=== PATIENT | female | born 1995 | race Caucasian/White ===

== ENCOUNTER 2018-05-15 21:53 | Observation (INO) | payer BC ==
[~2018-05-15] VITALS: Ht 172.7 cm; Wt 70.3 kg
[2018-05-15] MEDS ORDERED: NS(*) 0.9% 1000 ML BAG 1,000 ML IV ONE (22:02)
--- NOTE | 2018-05-15 22:02 | ER Report ---
History and Physical Time Seen By MD: 21:57 HPI/ROS CHIEF COMPLAINT: Right lower quadrant abdominal pain HISTORY OF PRESENT ILLNESS: 22-year-old female presents with 4 hours of severe right lower quadrant pain. She notes nausea but no vomiting. She's had no fever or chills. She denies dysuria. Menstrual period was one week ago. REVIEW OF SYSTEMS: Respiratory: No cough, no dyspnea. Cardiovascular: No chest pain, no palpitations. Gastrointestinal: As above Musculoskeletal: No back pain. Allergies: Coded Allergies: No Known Drug Allergies (Unverified , 05/15/18) Home Meds Active Scripts Tramadol Hcl (TRAMADOL HCL) 50 Mg Tablet, 50 MG PO Q4H PRN for PAIN, #30 TAB Prov:MACARIO NUNEZ 05/17/18 Reported Medications [ Control] No Conflict Check 05/15/18 Constitutional Vital Sign - Last 24 Hours 05/15/18 05/16/18 05/16/18 21:57 00:00 00:15 Temp 98.3 Pulse 91 70 Resp 16 B/P (MAP) 141/95 130/91 (104) Pulse Ox 97 97 O2 Delivery Room Air Physical Exam General Appearance: The patient is alert, has no immediate need for airway protection and no current signs of toxicity. Vital signs stable, afebrile, pulse ox normal HEENT: Pupils equal and round no injection. Oropharynx without redness or exudate, mucous. Membranes are most Respiratory: Chest is non tender, lungs are clear to auscultation. Cardiac: regular rate and rhythm Gastrointestinal: Abdomen is soft moderate right middle quadrant tenderness, no masses, bowel sounds normal. Musculoskeletal: Neck: Neck is supple and non tender. Extremities have full range of motion and are non tender. Skin: No rashes or lesions. DIFFERENTIAL DIAGNOSIS: After history and physical exam differential diagnosis was considered for abdominal pain including but not limited to appendicitis, cholecystitis, gastritis and urinary tract infection. Medical Decision Making Data Points Result Diagram: 05/17/18 1010 05/15/18 2212 Laboratory Hematology Test 05/15/18 22:00 05/15/18 22:12 Urine Color Yellow Urine Clarity Clear Urine pH 5.0 pH (4.8-9.5) Urine Specific [place] 1.024 Urine Protein Negative mg/dL (NEGATIVE) Urine Glucose (UA) Negative mg/dL (NEGATIVE) Urine Ketones Negative mg/dL (NEGATIVE) Urine Blood Negative (NEGATIVE) Urine Nitrite Negative (NEGATIVE) Urine Bilirubin Negative (NEGATIVE) Urine Urobilinogen Negative mg/dL (0.2-1.9) Urine Leukocyte Esterase Negative (NEGATIVE) Urine RBC <1 /HPF (0-2/HPF) Urine WBC 1 /HPF (0-5/HPF) Urine Squamous Epithelial Cells Many /LPF (</=FEW) Urine Bacteria Negative /HPF (NONE-FEW) Urine Mucus None /HPF (NONE-FEW) Sodium Level 139 mmol/L (137-145) Potassium Level 3.7 mmol/L (3.5-5.0) Chloride Level 103 mmol/L (98-107) Carbon Dioxide Level 24 mmol/L (22-31) Blood Urea Nitrogen 14 mg/dl (7-18) Creatinine 0.90 mg/dl (0.52-1.04) Glomerular Filtration Rate Calc > 60.0 Random Glucose 104 mg/dl (75-110) Calcium Level 9.6 mg/dl (8.4-10.2) Total Bilirubin 0.8 mg/dl (0.2-1.3) Aspartate Amino Transf (AST/SGOT) 20 U/L (0-35) Alanine Aminotransferase (ALT/SGPT) 25 U/L (0-56) Alkaline Phosphatase 82 U/L (0-126) Total Protein 8.9 g/dl (6.3-8.2) Albumin 5.1 g/dl (3.5-5.0) Amylase Level 102 U/L (0-110) Lipase 54 U/L (23-300) Human Chorionic Gonadotropin, Qual Negative (NEGATIVE) Chemistry Test 05/15/18 22:00 05/15/18 22:12 Urine Color Yellow Urine Clarity Clear Urine pH 5.0 pH (4.8-9.5) Urine Specific [place] 1.024 Urine Protein Negative mg/dL (NEGATIVE) Urine Glucose (UA) Negative mg/dL (NEGATIVE) Urine Ketones Negative mg/dL (NEGATIVE) Urine Blood Negative (NEGATIVE) Urine Nitrite Negative (NEGATIVE) Urine Bilirubin Negative (NEGATIVE) Urine Urobilinogen Negative mg/dL (0.2-1.9) Urine Leukocyte Esterase Negative (NEGATIVE) Urine RBC <1 /HPF (0-2/HPF) Urine WBC 1 /HPF (0-5/HPF) Urine Squamous Epithelial Cells Many /LPF (</=FEW) Urine Bacteria Negative /HPF (NONE-FEW) Urine Mucus None /HPF (NONE-FEW) Glomerular Filtration Rate Calc > 60.0 Calcium Level 9.6 mg/dl (8.4-10.2) Total Bilirubin 0.8 mg/dl (0.2-1.3) Aspartate Amino Transf (AST/SGOT) 20 U/L (0-35) Alanine Aminotransferase (ALT/SGPT) 25 U/L (0-56) Alkaline Phosphatase 82 U/L (0-126) Total Protein 8.9 g/dl (6.3-8.2) Albumin 5.1 g/dl (3.5-5.0) Amylase Level 102 U/L (0-110) Lipase 54 U/L (23-300) Human Chorionic Gonadotropin, Qual Negative (NEGATIVE) Urinalysis Test 05/15/18 22:00 Urine Color Yellow Urine Clarity Clear Urine pH 5.0 pH (4.8-9.5) Urine Specific [place] 1.024 Urine Protein Negative mg/dL (NEGATIVE) Urine Glucose (UA) Negative mg/dL (NEGATIVE) Urine Ketones Negative mg/dL (NEGATIVE) Urine Blood Negative (NEGATIVE) Urine Nitrite Negative (NEGATIVE) Urine Bilirubin Negative (NEGATIVE) Urine Urobilinogen Negative mg/dL (0.2-1.9) Urine Leukocyte Esterase Negative (NEGATIVE) Urine RBC <1 /HPF (0-2/HPF) Urine WBC 1 /HPF (0-5/HPF) Urine Squamous Epithelial Cells Many /LPF (</=FEW) Urine Bacteria Negative /HPF (NONE-FEW) Urine Mucus None /HPF (NONE-FEW) EKG/Imaging Imaging Results: CT scan of the abdomen and pelvis with IV contrast was obtained. The results of the study are CT of the abdomen and pelvis with contrast: Indication: Lower abdominal pain and leukocytosis. Technique: Helical CT was performed through the abdomen and pelvis following IV contrast enhancement with 75 cc of Isovue-370. Multiplanar reconstructions are reviewed. One of the following dose optimization techniques was utilized in the performance of this exam: Automated exposure control; adjustment of the mA and/or kV according to the patient's size; or use of an iterative reconstruction technique. Specific details can be referenced in the facility's radiology CT ex am operational policy. Comparison: None available. Lower lung mcadams: No parenchymal or pleural abnormality is identified. Liver: Normal in size, shape, and density. The venous structures appear unremarkable. Gallbladder/biliary tree: The gallbladder is normal in size and homogeneous in density. The bile ducts are not dilated. Pancreas: Normal in size, shape, and density. Spleen: Normal in size, shape, and density. Adrenal glands: Within normal limits. Kidneys/urinary bladder: The kidneys are normal in size, shape, and density. There are no signs of urinary tract calculus or obstruction. The bladder is unremarkable, as visualized. Intestinal structures: It appears that the appendix is visualized on coronal images 31 and 32 and sagittal images 67, 68, and 69. It appears normal in size and shape. On the coronal images, there is a suggestion of mild periappendiceal inflammation. There are no signs of fluid collection or free fluid. Early acute appendicitis cannot be excluded, and close clinical follow-up is recommended. The intestinal structures are otherwise unremarkable, as visualized. There are no signs of obstruction. Pelvis: The uterus and adnexal structures are unremarkable, as visualized. There is minimal free fluid in the pelvis. No circumscribed fluid collection is identified. Aorta and vascular structures: Within normal limits. Ascites or fluid collections: There is minimal free fluid in the pelvis. Skeletal structures: Well mineralized and intact. Impression: Early acute appendicitis cannot be excluded. Close clinical follow- up is recommended. The study was read by the radiologist. I viewed the images myself on the PACS s [employer]. ED Course/Re-evaluation Clinical Indication for ER IV: Hydration, IV Access ED Course Patient was admitted to an examination room. H&P was done. The differential diagnoses was considered. On clinical examination. Patient has right lower quadrant tenderness. She has rebound and guarding. A CT scan is performed. Patient's treated with IV fluids, Zofran and fentanyl. She receives Dilaudid 1 mg as well. Her laboratory studies are unremarkable, except a elevated white blood cell count. CT scan shows an acute appendicitis. Results are discussed with general surgery on-call, Dr. Nunez, who accepts the patient for admission. Brief holding orders are written. Decision to Disposition Date: May 16, 2018 Decision to Disposition Time: 00:03 Depart Departure Latest Vital Signs Vital Signs Date Time Temp Pulse Resp B/P (MAP) Pulse Ox O2 Delivery O2 Flow Rate FiO2 05/16/18 00:15 70 97 05/16/18 00:00 130/91 (104) 05/15/18 21:57 98.3 16 Room Air Impression: Primary Impression: Appendicitis, unqualified Condition: Improved Disposition: Admitted from ER New Scripts Tramadol Hcl (TRAMADOL HCL) 50 Mg Tablet 50 MG PO Q4H PRN for PAIN, #30 TAB Prov: MACARIO NUNEZ 05/17/18 LILLIANA ROB DO May 15, 2018 22:02
[2018-05-15] MEDS ORDERED: BIRTH CONTROL (22:04)
[2018-05-15] MEDS ORDERED: ONDANSETRON 4 MG/2 ML VIAL IVP ONE (22:05)
[2018-05-15] MEDS ORDERED: fentaNYL CITR 100 MCG/2 ML AMP IVP ONE ×2 (22:05→22:45)
[2018-05-15 22:25] LABS: PLATELET COUNT, AUTOMATED 247 K/uL (150-450)
[2018-05-15] MEDS ORDERED: IOPAMIDOL 61% 100 ML INFUS BTL 100 ML ONE (22:46)
--- NOTE | 2018-05-15 23:43 | RADIOLOGY IMAGING REPORT ---
FAC[place] [facility] [place]IENT NAME: Alma Alejandro : 1995 MR: [id number] V: [id number] EXAM DATE: ORDERING PHYSICIAN: LILLIANA ROB TECHNOLOGIST: [place] [facility] [place] Patient: Alma Alejandro : 1995 Visit/Account:[id number] Date of Sevice: 05/15/2018 CT of the abdomen and pelvis with contrast: Indication: Lower abdominal pain and leukocytosis. Technique: Helical CT was performed through the abdomen and pelvis following IV contrast enhancement with 75 cc of Isovue-370. Multiplanar reconstructions are reviewed. One of the following dose optimization techniques was utilized in the performance of this exam: Autom ated exposure control; adjustment of the mA and/or kV according to the patient's size; or use of an i terative reconstruction technique. Specific details can be referenced in the facility's radiology CT exam operational policy. Comparison: None available. Lower lung mcadams: No parenchymal or pleural abnormality is identified. Liver: Normal in size, shape, and density. The venous structures appear unremarkable. Gallbladder/biliary tree: The gallbladder is normal in size and homogeneous in density. The bile duct s are not dilated. Pancreas: Normal in size, shape, and density. Spleen: Normal in size, shape, and density. Adrenal glands: Within normal limits. Kidneys/urinary bladder: The kidneys are normal in size, shape, and density. There are no signs of ur inary tract calculus or obstruction. The bladder is unremarkable, as visualized. Intestinal structures: It appears that the appendix is visualized on coronal images 31 and 32 and sag ittal images 67, 68, and 69. It appears normal in size and shape. On the coronal images, there is a s uggestion of mild periappendiceal inflammation. There are no signs of fluid collection or free fluid. Early acute appendicitis cannot be excluded, and close clinical follow-up is recommended. The intestinal structures are otherwise unremarkable, as visualized. There are no signs of obstructio n. Pelvis: The uterus and adnexal structures are unremarkable, as visualized. There is minimal free flui d in the pelvis. No circumscribed fluid collection is identified. Aorta and vascular structures: Within normal limits. Ascites or fluid collections: There is minimal free fluid in the pelvis. Skeletal structures: Well mineralized and intact. Impression: Early acute appendicitis cannot be excluded. Close clinical follow-up is recommended. Report Dictated By: Hussain Busch MD at 05/15/2018 11:23 PM Report E-Signed By: Hussain Busch MD at 05/15/2018 11:39 PM WSN:[id number]
[2018-05-15] MEDS ORDERED: HYDROMORPHONE HCL 1 MG/ML SYRINGE IVP ONE (23:55)
[2018-05-16] VITALS (14 sets, daily range): BP systolic 97–124; BP diastolic 55–79; Ht 172.7 cm; Wt 70.3 kg
[2018-05-16] MEDS ORDERED: ONDANSETRON 4 MG/2 ML VIAL IVP PRN (01:05)
[2018-05-16] MEDS ORDERED: MORPHINE 4 MG/ML SDV IVP PRN (01:05)
[2018-05-16] MEDS: LR(*) 1000 ML BAG 1,000 ML IV SCH ×3 (01:29→14:13)
[2018-05-16] MEDS ORDERED: PIPERACILLIN/TAZO*3.375GM VIAL 3.375 GM in NS(*) 0.9% 100 ML ADDVANT BAG 100 ML IVPB SCH ×2 (01:30→06:00)
[2018-05-16] MEDS: HYDROmorphone HCL 2 MG/ML SDV IVP PRN ×2 (02:23→07:17)
--- NOTE | 2018-05-16 07:59 | Gen Surgery History & Physical ---
History of Present Illness Chief Complaint rlq pain History of Present Illness 22 yo f with rlq sharp pain since yesterday afternoon. +vomiting and diarrhea. no similar pain in the past. no surgeries in the past. fam hx: breast and lung ca social hx: +cigs, occasional etoh History Home Meds Reported Medications [ Control] No Conflict Check 05/15/18 Allergies: Coded Allergies: No Known Drug Allergies (Unverified , 05/15/18) Review of Systems Constitutional: Other (10 pt ros neg except per hpi) Exam General Appearance: Alert, Awake, Other (appears slightly uncomfortable) Neuro: No Gross deficits Eyes: Other (per, eomi) ENT: Moist Mucous Membranes Cardiovascular: Other (reg rate) Respiratory: No Respiratory Distress GI: Other (soft, rlq ttp) Extremities: Other (no pitting edema) Integumentary: Skin Intact without Lesion / Mass Psych: Alert & Oriented X3, Appropriate Mood & Affect Medical Decision Making Data Points Result Diagram: 05/15/18 2212 05/15/182211 Assessment and Plan Problems: (1) Appendicitis, unqualified Status: Acute Assessment & Plan: 05/16/18: npo, iv abx, lap appy Venous Thromboembolism Antithrombotics Is Pt On Any Antithrombotics?: No MACARIO MAY May 16, 2018 07:59
[2018-05-16] MEDS ORDERED: MORPHINE 2 MG/ML SYR IVP PRN (08:20)
[2018-05-16] MEDS: PIPERACILLIN/TAZO*3.375GM VIAL 3.375 GM in NS(*) 0.9% 100 ML ADDVANT BAG 100 ML IVPB SCH ×3 (08:34→20:17)
[2018-05-16] MEDS ORDERED: MIDAZOLAM 2 MG/2 ML VIAL ONE (08:39)
[2018-05-16] MEDS ORDERED: fentaNYL CITR 250 MCG/5 ML AMP ONE (08:43)
[2018-05-16] MEDS ORDERED: DEXAMETHASONE SOD PHOS 10MG/ML ONE (08:44)
[2018-05-16] MEDS ORDERED: ONDANSETRON 4 MG/2 ML VIAL ONE (08:44)
[2018-05-16] MEDS ORDERED: LIDOCAINE MPF 1% 5 ML VIAL ONE (08:44)
[2018-05-16] MEDS ORDERED: PROPOFOL EMUL(*) 10MG/ML 20 ML 20 ML ONE (08:44)
[2018-05-16] MEDS ORDERED: KETOROLAC 30 MG/ML VIAL ONE (08:45)
[2018-05-16] MEDS ORDERED: SUGAMMADEX SOD 200 MG/2 ML SDV ONE (08:45)
[2018-05-16] MEDS ORDERED: HALOPERIDOL LACT 5 MG/ML VIAL IM ONE (08:47)
[2018-05-16] MEDS ORDERED: KETAMINE HCL 200 MG/20 ML MDV ONE (11:11)
[2018-05-16] MEDS ORDERED: ENOXAPARIN 40 MG/0.4ML SYR SC ONE ×2 (12:35→20:00)
--- NOTE | 2018-05-16 12:38 | Post Operative Progress Note ---
Post Operative Progress Note Date: May 16, 2018 Time: 12:34 Surgeon: dr. tori gonsalves #[id number] Senior Outside Sales Representative: none Anesthesia: gen, local dr. reynolds Pre-Op Diagnosis: acute appendicitis Post-Op Diagnosis: same Findings: acute appendicitis Procedure(s): lap appy Specimen Removed:(May be N/A): appendix Complications: none Fluids: iv crystalloid Estimated Blood Loss: minimal Date OP Note Dictated: May 16, 2018 Time OP Note Dictated: 12:35 MACARIO GONSALVES May 16, 2018 12:38
--- NOTE | 2018-05-16 14:54 | OPERATIVE REPORT 1 ---
EVENT DATE: May 16, 2018 SURGEON: Jeremy Nunez MD ANESTHESIOLOGIST: Dung Garcia MD ANESTHESIA: General and local. MOTOR RUNNER: None. PREOPERATIVE DIAGNOSIS Acute appendicitis. POSTOPERATIVE DIAGNOSIS Acute appendicitis. PROCEDURE PERFORMED Laparoscopic appendectomy. FLUIDS IV crystalloid. ESTIMATED BLOOD LOSS Minimal. SPECIMENS Appendix. COMPLICATIONS None. INDICATIONS This is a 22-year-old female with right lower quadrant pain since yesterday. On physical exam, she was tender to palpation in the right lower quadrant. She was stable. Imaging was consistent with acute appendicitis. Risks and benefits of the procedure were explained, and consent was signed. DESCRIPTION OF PROCEDURE Patient was taken to the operating room and placed in the supine position. General anesthesia was administered per anesthesia team. Patient was prepped and draped in normal sterile fashion. Local analgesia was injected in the dermis above the umbilicus, and a 5 mm vertical incision was made. The umbilical stump was grasped and elevated. A Veress needle was inserted. Pneumoperitoneum was achieved. Veress needle was removed. A 5 mm port was advanced. After injecting local analgesia under direct vision, I placed a 5 mm suprapubic port and a 12 mm left lower quadrant port. I inspected the abdomen. There was no injury upon entry. The appendix was quickly identified. It was inflamed, consistent with acute appendicitis. I created a window in the mesoappendix at the base of the appendix and divided the mesoappendix with LigaSure. I then divided the appendix at its base with a laparoscopic 45 mm blue load ELEUTERIO stapler. The appendix was removed with an Endo Catch bag through the left lower quadrant port site. I inspected the abdomen. The staple line was confirmed to be intact. Hemostasis was assured. Abdomen was irrigated. Irrigant returned clear. Again, hemostasis was assured. Fascia closure device with an 0 Vicryl stitch was used to close the fascia of the left lower quadrant port site. Suprapubic port was removed under direct vision. Hemostasis was assured. Pneumoperitoneum was relieved. Supraumbilical port was removed. All incisions were closed with 4-0 Monocryl subcuticular stitches. More local analgesia was injected. Appropriate dressings were applied. Patient tolerated the procedure overall well. There were no complications. [facility]
[2018-05-16] MEDS: APAP/HYDROCODONE 325/5 TAB PO PRN (20:17)
[2018-05-17] MEDS: PIPERACILLIN/TAZO*3.375GM VIAL 3.375 GM in NS(*) 0.9% 100 ML ADDVANT BAG 100 ML IVPB SCH ×2 (02:14→08:28)
[2018-05-17] MEDS: APAP/HYDROCODONE 325/5 TAB PO PRN ×2 (05:06→08:32)
[2018-05-17 08:04] VITALS: BP 117/80
[2018-05-17] MEDS ORDERED: TRAM-420 PO (08:17)
[2018-05-17] MEDS: LR(*) 1000 ML BAG 1,000 ML IV SCH (08:28)
--- NOTE | 2018-05-17 09:24 | General Surgery Progress Note ---
Subjective Progress Notes Subjective doing well. pedrito food. pain around llq inc. Physical Exam Vital Signs Date Time Temp Pulse Resp B/P (MAP) Pulse Ox O2 Delivery O2 Flow Rate FiO2 05/17/18 08:04 98.7 71 18 117/80 (92) 94 Room Air 05/16/18 16:30 1.0 Intake and Output 05/17/18 07:00 Intake Total 1545 ml Output Total 550 ml Balance 995 ml Intake Oral 0 ml IV Total 1545 ml Output Urine Total 550 ml # Voids 1 General Appearance: No Acute Distress Cardiovascular: Other (reg rate) GI: Other (abd soft) Result Diagram: 05/15/18221105/15/182211 Assessment and Plan Problems: (1) Appendicitis, unqualified Status: Acute Assessment & Plan: 05/16/18: npo, iv abx, lap appy 05/16/18: s/p lap appy. doing well. d/c home today. Exam Sepsis Risk: No Definite Risk MACARIO MAY May 17, 2018 09:24
--- NOTE | 2018-05-17 09:26 | Hospitalist Depart ---
Discharge Summary Reason for Hosp/Final Diag: (1) Appendicitis, unqualified Status: Acute Hospital Course & Plan: 05/16/18: npo, iv abx, lap appy 05/16/18: s/p lap appy. doing well. d/c home today. Departure Weight (Pounds): 155 Result Diagram: 05/15/18 2212 05/15/18 2212 Condition: Improved Discharge Instructions Home Meds Active Scripts Tramadol Hcl (TRAMADOL HCL) 50 Mg Tablet, 50 MG PO Q4H PRN for PAIN, #30 TAB Prov:MACARIO GONSALVES 05/17/18 Reported Medications [ Control] No Conflict Check 05/15/18 Diet: Regular Activity: No Heavy Lifting Special Instructions: ok to return to work on 05/25/18. no lifting more then 15 lbs for 3 wks. no restrictions after 3 wks. ok to shower today. follow up dr. lisa gonsalves 2 wks ([phone]). take stool softener while taking pain meds. Venous Thromboembolism Antithrombotics Is Pt On Any Antithrombotics?: MACARIO Stuart May 17, 2018 09:26
[2018-05-17 10:34] LABS: PLATELET COUNT, AUTOMATED 211 K/uL (150-450)
== END 2018-05-17 09:24 | disposition home or self-care (01) ==
LOC: ER 22:21 → PED 05-16 00:16 → INTOOBSV 05-16 00:16
PROVIDERS: ADMIT Surgery; ATTEND Surgery
DX: K37 Unspecified appendicitis (principal)
CPT/HCPCS: 36415; 44970; 74177; 81001; 82150; 83690; 84703; 85025; 88304; 96361; 96372; 96374; 96375; 99284; G0378; J1100; J1170; J1630; J1650; J1885; J2001; J2250; J2405; J2543; J2704; J3010; J3490; J7030; J7050; J7120; Q9967; 82040; 82247; 82310; 82374; 82435; 82565; 82947; 84075; 84132; 84155; 84295; 84450; 84460; 84520

== ENCOUNTER 2018-10-22 10:18 | Emergency (ER) | payer BC ==
[2018-05-16 09:03] VITALS: Wt 74.8 kg
[~2018-10-22 10:18] MED LIST: BIRTH CONTROL; TRAM-420 PO
[2018-10-22 10:34] VITALS: BP 131/98
--- NOTE | 2018-10-22 10:41 | ER Report ---
History and Physical Time Seen By MD: 10:37 HPI/ROS CHIEF COMPLAINT: Suicidal thoughts HISTORY OF PRESENT ILLNESS: This is a 23-year-old female who presents to emergency department with her therapist and her boyfriend for thoughts of self-harm. The patient states over the last month she's had some rather depressive thoughts, including thoughts of not waking up, getting into a car accident, however the last week or 2 the thoughts of been increasing in intensity, she states that she's been bullied at work, she is working more and more, with increasing response [place] at work, she also states that she is cutting off her relationship with her father, her guinea pig recently , and all these have posterior to the point of wanting to not wake up, get into a car accident, though she states she does not have a formal plan. She is accompanied by her therapist, this is their 2nd session when she opened up to her therapist about her thoughts the decided bring her in for an evaluation. She states that she had depression started when she was 13 years old, seeing a therapist, she is been on medications in the past but not currently taking medication. She also states that she's been drinking excessive amounts of alcohol recently. No drugs. No chest pain or shortness of breath. She does have some anxiety but no other complaints, no fevers or chills. REVIEW OF SYSTEMS: Constitutional: No fever, no chills. Eyes: No discharge. ENT: No sore throat. Cardiovascular: No chest pain, no palpitations. Respiratory: No cough, no shortness of breath. Gastrointestinal: No abdominal pain, no vomiting. Genitourinary: No hematuria. Musculoskeletal: No back pain. Skin: No rashes. Neurological: No headache. Psychological: As above. Allergies: Coded Allergies: No Known Drug Allergies (Unverified , 05/15/18) Home Meds Reported Medications Desogestrel-Ethinyl Estradiol (APRI) 1 Each Tablet, 1 TAB PO QDAY 10/22/18 Discontinued Reported Medications [ Control] No Conflict Check 05/15/18 Past Medical/Surgical History The patient has a past medical and surgical history of recurrent stomach pains, alcohol use 3-4 drinks a week, increased in intensity recently, depression, anxiety, history of eating disorder, previous suicide attempt, small scar to the right wrist, appendectomy. Reviewed Nurses Notes: Yes Hx Smoking: Yes Smoking Status: Current: Every Day Smoker Exposure to Second Hand Smoke?: Yes Hx Substance Use Disorder: No Hx Alcohol Use: Yes (1xweek, 2 drinks) Constitutional Vital Sign - Last 24 Hours 10/22/18 10/22/18 10:32 10:34 Temp 99.1 99.1 Pulse 86 84 B/P (MAP) 131/98 (109) 131/98 Pulse Ox 94 94 O2 Delivery Room Air Room Air Physical Exam General Appearance: The patient is alert, has no immediate need for airway protection and no signs of toxicity. Eyes: Pupils equal and round no pallor or injection. ENT, Mouth: Mucous membranes are moist. Respiratory: There are no retractions, lungs are clear to auscultation. Cardiovascular: Regular rate and rhythm. Gastrointestinal: Abdomen is soft and non tender, no masses, bowel sounds normal. Neurological: Alert and oriented 4. Moving all extremities. Following. No focal neuro deficits. Skin: Warm and dry, no rashes. Musculoskeletal: Neck is supple non tender. Extremities are nontender, nonswollen and have full range of motion. Clinical logical: Very flat affect, monotone voice, however she is making good eye contact, hands and arms are open on her legs, cooperative and forthcoming with her concerns. DIFFERENTIAL DIAGNOSIS: After history and physical exam differential diagnosis was considered for suicidal ideation, depression. Medical Decision Making Data Points Result Diagram: 10/22/18 0000 10/22/18 0000 Laboratory Hematology Test 10/22/18 00:00 White Blood Count 6.8 k/uL (4.5-11.0) Red Blood Count 4.52 M/uL (4.17-5.56) Hemoglobin 14.3 g/dL (12.0-16.0) Hematocrit 41.9 % (34.0-47.0) Mean Corpuscular Volume 92.7 fL (80.0-96.0) Mean Corpuscular Hemoglobin 31.7 pg (26.0-33.0) Mean Corpuscular Hemoglobin Concent 34.2 g/dL (32.0-36.0) Red Cell Distribution Width 12.6 % (11.5-14.5) Platelet Count 234 K/uL (150-450) Mean Platelet Volume 8.7 fL (7.2-11.1) Neutrophils (%) (Auto) 71.2 % (39.4-72.5) Lymphocytes (%) (Auto) 20.1 % (17.6-49.6) Monocytes (%) (Auto) 6.6 % (4.1-12.4) Eosinophils (%) (Auto) 1.2 % (0.4-6.7) Basophils (%) (Auto) 0.9 % (0.3-1.4) Nucleated RBC Relative Count (auto) 0.1 /100WBC Neutrophils # (Auto) 4.9 K/uL (2.0-7.4) Lymphocytes # (Auto) 1.4 K/uL (1.3-3.6) Monocytes # (Auto) 0.5 K/uL (0.3-1.0) Eosinophils # (Auto) 0.1 K/uL (0.0-0.5) Basophils # (Auto) 0.1 K/uL (0.0-0.1) Nucleated RBC Absolute Count (auto) 0.00 K/uL Chemistry Test 10/22/18 00:00 Sodium Level 138 mmol/L (137-145) Potassium Level 4.1 mmol/L (3.5-5.0) Chloride Level 106 mmol/L (98-107) Carbon Dioxide Level 21 mmol/L (22-31) Blood Urea Nitrogen 11 mg/dl (7-18) Creatinine 0.70 mg/dl (0.52-1.04) Glomerular Filtration Rate Calc > 60.0 Random Glucose 101 mg/dl (75-110) Calcium Level 9.0 mg/dl (8.4-10.2) Magnesium Level 1.9 mg/dl (1.7-2.2) Total Bilirubin 0.4 mg/dl (0.2-1.3) Aspartate Amino Transf (AST/SGOT) 22 U/L (0-35) Alanine Aminotransferase (ALT/SGPT) 22 U/L (0-56) Alkaline Phosphatase 64 U/L (0-126) Total Protein 7.5 g/dl (6.3-8.2) Albumin 4.2 g/dl (3.5-5.0) Thyroid Stimulating Hormone (TSH) 1.57 uIU/ml (0.46-4.68) Human Chorionic Gonadotropin, Qual Negative (NEGATIVE) Toxicology Test 10/22/18 00:00 10/22/18 10:40 Salicylates Level < 10 mg/L Salicylate Last Dose Date Unk Acetaminophen Level < 10 ug/ml Serum Alcohol < 10 mg/dl Urine Opiates Screen Negative Urine Barbiturates Screen Negative Ur Tricyclic Antidepressants Screen Negative Urine Phencyclidine Screen Negative Urine Amphetamines Screen Negative Urine Benzodiazepines Screen Negative Urine Cocaine Screen Negative Urine Cannabinoids Screen Negative Urinalysis Test 10/22/18 10:40 Urine Color Yellow Urine Clarity Clear Urine pH 6.0 pH (4.8-9.5) Urine Specific [place] 1.016 Urine Protein Negative mg/dL (NEGATIVE) Urine Glucose (UA) Negative mg/dL (NEGATIVE) Urine Ketones Negative mg/dL (NEGATIVE) Urine Blood Negative (NEGATIVE) Urine Nitrite Negative (NEGATIVE) Urine Bilirubin Negative (NEGATIVE) Urine Urobilinogen Negative mg/dL (0.2-1.9) Urine Leukocyte Esterase Negative (NEGATIVE) Urine RBC <1 /HPF (0-2/HPF) Urine WBC <1 /HPF (0-5/HPF) Urine Squamous Epithelial Cells Many /LPF (</=FEW) Urine Bacteria Negative /HPF (NONE-FEW) Urine Mucus None /HPF (NONE-FEW) ED Course/Re-evaluation ED Course The patient was admitted to room. A history and physical were obtained. Diff erential diagnoses were considered. A CBC, CMP, UA, psych panel were obtained. CBC, chemistry unremarkable, negative alcohol, negative tox screen, negative UA. The patient was evaluated by one of the behavioral health technicians, patient did sign to the behavioral health unit voluntarily, I did speak with Dr. Farah as noted below, he is accepting the patient into the behavioral health unit for suicidal ideation and major depression. 10/22/2018 1:02:44 pm I did speak with Dr. Farah the psychiatrist on-call, he's except patient in the behavioral health unit, for suicidal ideation and major depression. Decision to Disposition Date: Oct 22, 2018 Decision to Disposition Time: 13:02 Depart Departure Latest Vital Signs Vital Signs Date Time Temp Pulse Resp B/P (MAP) Pulse Ox O2 Delivery O2 Flow Rate FiO2 10/22/18 10:34 99.1 84 131/98 94 Room Air Impression: Primary Impression: Suicidal ideation Additional Impression: Major depression Condition: Improved Disposition: XFER TO [facility] Problem Qualifiers Additional Impression: Major depression Major depression recurrence: unspecified whether recurrent Active/Remission status: currently active Major depression episode severity: unspecified Qualified Codes: F32.9 - Major depressive disorder, single episode, unspecified DONNY ESCOBEDO [facility]- Oct 22, 2018 10:41
[2018-10-22 11:30] LABS: PLATELET COUNT, AUTOMATED 234 K/uL (150-450)
[2018-10-22] MEDS ORDERED: DESO1TAB32 PO (13:22)
[2018-10-23] MEDS ORDERED: MULT-859 PO (13:50)
[2018-10-23] MEDS ORDERED: NIC10R INH (13:50)
== END 2018-10-22 18:00 ==
LOC: ER 10:46
DX: R45.851 Suicidal ideations (principal); F32.9 Major depressive disorder, single episode, unspecified
CPT/HCPCS: 36415; 80305; 80320; 80329; 81001; 82040; 82247; 82310; 82374; 82435; 82565; 82947; 83735; 84075; 84132; 84155; 84295; 84443; 84450; 84460; 84520; 84703; 85025; 99284

== ENCOUNTER 2018-10-22 17:52 | Inpatient (IN) | payer BC ==
[2018-05-16 09:03] VITALS: Ht 172.7 cm; Wt 74.8 kg
[~2018-10-22] VITALS: Ht 172.7 cm; Wt 74.8 kg
[~2018-10-22 17:52] MED LIST changes: +DESO1TAB32 PO
[2018-10-22] MEDS ORDERED: MAG HYD/AL HYD/SIMETH 30ML UDC PO PRN (18:35)
[2018-10-22 19:18] VITALS: BP 129/85
[2018-10-22] MEDS ORDERED: NICOTINE CARTRIDGE 1 EA PO PRN (20:55)
[2018-10-22] MEDS ORDERED: NICOTINE INH SYSTEM 10 MG/INH INH PRN (20:55)
[2018-10-22] MEDS ORDERED: hydrOXYzine PAMOATE 25 MG CAP PO PRN (21:35)
[2018-10-23 06:09] VITALS: BP 121/70
[2018-10-23] MEDS ORDERED: MULTIVITAMINS PO SCH (09:00)
[2018-10-23] MEDS ORDERED: FOLIC ACID 1 MG TAB PO SCH (09:00)
[2018-10-23] MEDS ORDERED: THIAMINE HCL 100 MG TAB PO SCH (09:00)
[2018-10-23 13:00] VITALS: BP 128/72
[2018-10-23] MEDS ORDERED: NIC10R INH (13:50)
[2018-10-23] MEDS ORDERED: MULT-859 PO (13:50)
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
== END 2018-10-23 16:10 | disposition home or self-care (01) | DRG 880 ==
LOC: BHS 17:52
PROVIDERS: ADMIT Psychiatry & Neurology Psychiatry; ATTEND Psychiatry & Neurology Psychiatry
DX: F41.8 Other specified anxiety disorders (principal); G47.00 Insomnia, unspecified; F17.210 Nicotine dependence, cigarettes, uncomplicated; Z81.1 Family history of alcohol abuse and dependence; Z81.8 Family history of other mental and behavioral disorders; Z62.810 Personal history of physical and sexual abuse in childhood; Z62.811 Personal history of psychological abuse in childhood; Z72.89 Other problems related to lifestyle